=== PATIENT | female | born 1940 | race Caucasian/White ===

== ENCOUNTER 2017-06-16 09:23 | Emergency (ER) | payer MEDICARE, BC ==
[~2017-06-16] VITALS: Ht 170.2 cm; Wt 93.2 kg
[2017-06-16] MEDS ORDERED: SIMVASTATIN20 MG PO (10:04)
[2017-06-16] MEDS ORDERED: LISINOPRIL20 MG PO (10:06)
[2017-06-16] MEDS ORDERED: HYDROCHLOROT25 MG PO (10:07)
[2017-06-16] MEDS ORDERED: KLOR-CON M2020 MEQ PO (10:07)
[2017-06-16] MEDS ORDERED: COREG6.25 MG PO (10:08)
[2017-06-16] MEDS ORDERED: EFFIENT10 MG PO (10:08)
[2017-06-16] MEDS ORDERED: LEVOTHYROXIN75 MCG PO (10:08)
[2017-06-16] MEDS ORDERED: SINGULAIR10 MG PO (10:09)
[2017-06-16] MEDS ORDERED: FAMOTIDINE20 M3 PO (10:10)
[2017-06-16 11:24] LABS: HEMOGLOBIN 11.8 g/dl (12.0-16.0); IMMATURE GRANULOCYTES 0.4 % (0.0-1.0); MEAN CELL VOLUME 90.7 fL CALC (80.0-100.0); MEAN CORPUSCULAR HGB 30.6 pG CALC (26.0-32.0); MEAN CORPUSCULAR HGB CONC 33.7 g/L CALC (32.0-36.0); NEUT# 8.08 thou/uL (2.00-7.15); RED BLOOD COUNT 3.86 mill/uL (4.20-5.60); RED CELL DISTRI WIDTH 12.8 % (11.5-15.5)
[2017-06-16 11:46] LABS: BILIRUBIN, TOTAL 0.9 mg/dL (0.0-1.4); CALCIUM 9.6 mg/dL (8.4-10.2); CREATININE 1.4 mg/dL (0.5-1.0); POTASSIUM 4.5 mmol/l (3.5-5.1); TOTAL PROTEIN 7.1 g/dL (6.3-8.2)
[2017-06-16] MEDS ORDERED: LOMOTIL2.5 MG PO (12:55)
[2017-06-16] MEDS ORDERED: CIPROFLOXACN500 MG PO (12:55)
[2017-06-16 13:25] VITALS: BP 146/92
== END 2017-06-16 13:25 | disposition home or self-care (01) ==
LOC: ED 09:23
PROVIDERS: Emergency Medicine
DX: K52.9 Noninfective gastroenteritis and colitis, unspecified (principal); K58.9 Irritable bowel syndrome, unspecified; I10 Essential (primary) hypertension; J45.909 Unspecified asthma, uncomplicated; G62.9 Polyneuropathy, unspecified; M79.7 Fibromyalgia; Z95.5 Presence of coronary angioplasty implant and graft; Z86.73 Personal history of transient ischemic attack (TIA), and cerebral infarction without residual deficits

== ENCOUNTER 2019-01-01 12:45 | Inpatient (IN) | payer MEDICARE, BC ==
[~2019-01-01] VITALS: Ht 170.2 cm; Wt 88.5 kg
[~2019-01-01 12:45] MED LIST: CIPROFLOXACN500 MG PO; COREG6.25 MG PO; EFFIENT10 MG PO; FAMOTIDINE20 M3 PO; HYDROCHLOROT25 MG PO; KLOR-CON M2020 MEQ PO; LEVOTHYROXIN75 MCG PO; LISINOPRIL20 MG PO; LOMOTIL2.5 MG PO; SIMVASTATIN20 MG PO; SINGULAIR10 MG PO
[2019-01-01 13:35] LABS: HEMATOCRIT 32.2 % (37.0-47.0); HEMOGLOBIN 10.4 g/dl (12.0-16.0); IMMATURE GRANULOCYTES 0.7 % (0.0-5.0); MEAN CELL VOLUME 88.7 fL CALC (80.0-100.0); MEAN CORPUSCULAR HGB 28.7 pG CALC (26.0-32.0); MEAN CORPUSCULAR HGB CONC 32.3 g/L CALC (32.0-36.0); NEUT# 16.07 thou/uL (2.00-7.15); RED BLOOD COUNT 3.63 mill/uL (4.20-5.60); RED CELL DISTRI WIDTH 15.6 % (11.5-15.5)
[2019-01-01 13:53] LABS: ALBUMIN 3.8 g/dL (3.2-5.0); ALKALINE PHOSPHATASE 62 u/l (38-126); ANION GAP 15 (6-22 (CALC)); BILIRUBIN, TOTAL 1.2 mg/dL (0.0-1.4); BUN 22 mg/dL (8-23); BUN/CREATININE RATIO 18 (12-20 (CALC)); CARBON DIOXIDE 28 mmol/l (22-30); CHLORIDE 95 mmol/l (95-108); CREATININE 1.2 mg/dL (0.5-1.0); GFR 44 ML/MIN (>=60 (CALC)); GFR FOR AFR.AMER. 53 ML/MIN (>=60 (CALC)); SGOT/AST 37 u/l (9-36); SODIUM 134 mmol/l (137-146); TOTAL PROTEIN 6.7 g/dL (6.3-8.2)
[2019-01-01] MEDS ORDERED: ASPIRIN325 MG PO (14:05)
[2019-01-01] MEDS ORDERED: AMIODARONE200 MG PO (14:07)
[2019-01-01] MEDS ORDERED: NITROSTAT0.4 MG SL (14:08)
[2019-01-01] MEDS ORDERED: ATROVENT H17 MCG/ACT IN (14:08)
[2019-01-01] MEDS ORDERED: IPRATROPIU0.5 MG/3 M IN (14:09)
[2019-01-01] MEDS ORDERED: VITAMIN D31000 UNI1 PO (14:10)
[2019-01-01] MEDS ORDERED: FOLIC ACID1 MG PO (14:10)
[2019-01-01] MEDS ORDERED: CALCIUM CITRATE +D PO (14:11)
[2019-01-01] MEDS ORDERED: COQ-10100 M1 PO (14:11)
[2019-01-01] MEDS ORDERED: MAGNESIUM250 M1 PO (14:12)
[2019-01-01] MEDS ORDERED: BIOTIN5000 MC1 PO (14:12)
[2019-01-01 15:49] VITALS: BP 151/66
[2019-01-01 19:00] VITALS: BP 152/56
[2019-01-01 23:54] VITALS: BP 129/43
[2019-01-02 04:25] VITALS: BP 127/53
[2019-01-02 05:31] LABS: HEMATOCRIT 30.1 % (37.0-47.0); IMMATURE GRANULOCYTES 0.6 % (0.0-5.0); MEAN CORPUSCULAR HGB 28.9 pG CALC (26.0-32.0); MEAN CORPUSCULAR HGB CONC 33.2 g/L CALC (32.0-36.0); NEUT# 11.44 thou/uL (2.00-7.15); RED BLOOD COUNT 3.46 mill/uL (4.20-5.60); RED CELL DISTRI WIDTH 15.4 % (11.5-15.5)
[2019-01-02 05:41] LABS: ALBUMIN 3.3 g/dL (3.2-5.0); BILIRUBIN, TOTAL 1.2 mg/dL (0.0-1.4); CREATININE 1.2 mg/dL (0.5-1.0); MAGNESIUM 1.5 mg/dL (1.6-2.3); POTASSIUM 3.4 mmol/l (3.5-5.1)
[2019-01-02 08:03] VITALS: BP 142/58
[2019-01-02 11:05] VITALS: BP 141/57
[2019-01-02 14:40] VITALS: BP 160/61
[2019-01-02 19:08] VITALS: BP 136/62
[2019-01-03 00:45] VITALS: BP 143/57
[2019-01-03 04:23] VITALS: BP 117/53
[2019-01-03 05:52] LABS: HEMATOCRIT 27.2 % (37.0-47.0); HEMOGLOBIN 8.9 g/dl (12.0-16.0); IMMATURE GRANULOCYTES 0.5 % (0.0-5.0); MEAN CELL VOLUME 87.5 fL CALC (80.0-100.0); MEAN CORPUSCULAR HGB 28.6 pG CALC (26.0-32.0); MEAN CORPUSCULAR HGB CONC 32.7 g/L CALC (32.0-36.0); NEUT# 9.66 thou/uL (2.00-7.15); RED BLOOD COUNT 3.11 mill/uL (4.20-5.60); RED CELL DISTRI WIDTH 15.5 % (11.5-15.5)
[2019-01-03 06:10] LABS: CREATININE 1.1 mg/dL (0.5-1.0); MAGNESIUM 1.6 mg/dL (1.6-2.3); POTASSIUM 3.3 mmol/l (3.5-5.1); TOTAL PROTEIN 5.7 g/dL (6.3-8.2)
[2019-01-03 07:24] VITALS: BP 144/56
[2019-01-03 12:00] VITALS: BP 137/34
[2019-01-03 16:00] VITALS: BP 144/67
[2019-01-03 20:01] VITALS: BP 134/57
[2019-01-04 00:13] VITALS: BP 136/51
[2019-01-04 05:10] LABS: HEMATOCRIT 29.5 % (37.0-47.0); HEMOGLOBIN 9.6 g/dl (12.0-16.0); IMMATURE GRANULOCYTES 0.5 % (0.0-5.0); MEAN CELL VOLUME 88.6 fL CALC (80.0-100.0); MEAN CORPUSCULAR HGB 28.8 pG CALC (26.0-32.0); MEAN CORPUSCULAR HGB CONC 32.5 g/L CALC (32.0-36.0); NEUT# 7.79 thou/uL (2.00-7.15); RED BLOOD COUNT 3.33 mill/uL (4.20-5.60); RED CELL DISTRI WIDTH 15.2 % (11.5-15.5)
[2019-01-04 05:16] LABS: BILIRUBIN, TOTAL 1.1 mg/dL (0.0-1.4); CREATININE 1.2 mg/dL (0.5-1.0); MAGNESIUM 1.5 mg/dL (1.6-2.3); POTASSIUM 3.1 mmol/l (3.5-5.1); TOTAL PROTEIN 5.8 g/dL (6.3-8.2)
[2019-01-04 05:25] VITALS: BP 137/53
[2019-01-04 08:04] VITALS: BP 128/64
[2019-01-04 11:30] VITALS: BP 151/57
[2019-01-04] MEDS ORDERED: LASIX 40 MG TAB40 MG PO (12:34)
[2019-01-04] MEDS ORDERED: AUGMENTIN500TAB PO (12:35)
== END 2019-01-04 14:53 | disposition home or self-care (01) | DRG 177 ==
LOC: ED 12:45 → ED-I 15:08 → ED 15:22 → MS2 15:23
PROVIDERS: Emergency Medicine; ADMIT Internal Medicine Nephrology; ATTEND Internal Medicine Nephrology
DX: J69.0 Pneumonitis due to inhalation of food and vomit (principal); I50.21 Acute systolic (congestive) heart failure; I11.0 Hypertensive heart disease with heart failure; J44.9 Chronic obstructive pulmonary disease, unspecified; E03.9 Hypothyroidism, unspecified; E78.5 Hyperlipidemia, unspecified; I25.10 Atherosclerotic heart disease of native coronary artery without angina pectoris; G62.9 Polyneuropathy, unspecified; K21.9 Gastro-esophageal reflux disease without esophagitis; E55.9 Vitamin D deficiency, unspecified; M79.7 Fibromyalgia; I48.2 Chronic atrial fibrillation; I25.2 Old myocardial infarction; Z95.0 Presence of cardiac pacemaker; Z95.1 Presence of aortocoronary bypass graft; Z95.5 Presence of coronary angioplasty implant and graft; Z95.820 Peripheral vascular angioplasty status with implants and grafts
CPT/HCPCS: G0378; J1650